=== PATIENT | male | born 1985 | race Caucasian/White ===

== ENCOUNTER 2018-03-22 10:54 | Emergency (ER) | payer SELFPAY ==
[~2018-03-22] VITALS: Ht 167.6 cm; Wt 81.8 kg
[2018-03-22 12:45] VITALS: BP 121/78
== END 2018-03-22 13:10 | disposition home or self-care (01) ==
LOC: EMS 10:55
DX: R06.02 Shortness of breath (principal); R51 Headache; F12.90 Cannabis use, unspecified, uncomplicated; F15.90 Other stimulant use, unspecified, uncomplicated; F17.210 Nicotine dependence, cigarettes, uncomplicated

== ENCOUNTER 2018-03-22 16:06 | Emergency (ER) | payer SELFPAY ==
[~2018-03-22] VITALS: Ht 167.6 cm; Wt 81.8 kg
[2018-03-22] MEDS ORDERED: PROMETHAZINE HCL 25 MG TABLET PO ONE (17:00)
[2018-03-22] MEDS ORDERED: LORazepam 2 MG TABLET PO ONE (17:00)
[2018-03-22] MEDS ORDERED: CloNIDine HCL 0.1 MG TABLET PO ONE (17:00)
[2018-03-22] MEDS ORDERED: LORazepam 2 MG/ML VIAL IM ONE (17:15)
[2018-03-22 18:30] VITALS: BP 135/79
== END 2018-03-22 18:41 | disposition home or self-care (01) ==
LOC: EMS 16:07
DX: F10.239 Alcohol dependence with withdrawal, unspecified (principal); F11.10 Opioid abuse, uncomplicated; F12.90 Cannabis use, unspecified, uncomplicated; F15.90 Other stimulant use, unspecified, uncomplicated; F17.210 Nicotine dependence, cigarettes, uncomplicated; Y90.0 Blood alcohol level of less than 20 mg/100 ml
CPT/HCPCS: 36415; 96372; 99283; G0480; J2060